=== PATIENT | male | born 2000 | race African-American/Black ===

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

== ENCOUNTER 2022-05-26 17:31 | Emergency (ER) | payer MEDICAID ==
[~2022-05-26] VITALS: Ht 167.6 cm; Wt 69.0 kg
[~2022-05-26 17:31] MED LIST changes: -ACETAMINOPHEN 325MG TABLET PO ONE; -IBUP-1649 PO; +IBUP-2077 PO
[2022-05-26 17:46] VITALS: BP 145/83
== END 2022-05-27 00:23 | disposition home or self-care (01) ==
LOC: ER 17:31
DX: K40.90 Unilateral inguinal hernia, without obstruction or gangrene, not specified as recurrent (principal); M85.48 Solitary bone cyst, other site; J45.909 Unspecified asthma, uncomplicated; Z98.890 Other specified postprocedural states; Z91.012 Allergy to eggs; Z91.010 Allergy to peanuts
CPT/HCPCS: 74176; 99284